=== PATIENT | male | born 1970 ===

== ENCOUNTER 2020-04-30 10:33 | Emergency (ER) | payer OTHER ==
[~2020-04-30] VITALS: Ht 172.7 cm; Wt 80.4 kg
[2020-04-30 10:37] VITALS: BP 155/95
[2020-04-30] MEDS ORDERED: ketorolac trometh inj. 60 MG/2 ML VIAL IM ONE (10:50)
[2020-04-30] MEDS ORDERED: IBUP-1984 PO (11:33)
== END 2020-04-30 11:51 | disposition home or self-care (01) ==
LOC: ER 10:34
DX: S43.102A Unspecified dislocation of left acromioclavicular joint, initial encounter (principal); M25.512 Pain in left shoulder; M54.2 Cervicalgia; Z79.899 Other long term (current) drug therapy; W19.XXXA Unspecified fall, initial encounter; Y93.89 Activity, other specified; Y92.89 Other specified places as the place of occurrence of the external cause; Y99.8 Other external cause status
CPT/HCPCS: 73030; 96372; 99283; J1885